=== PATIENT | male | born 1995 | race Caucasian/White ===

== ENCOUNTER 2019-05-05 07:05 | Emergency (ER) | payer OTHER, MEDICAID ==
[2019-05-05] MEDS: ONDANSETRON 4 MG INJ IV (07:33)
[2019-05-05] MEDS: ACETAMINOPHEN 325 MG TAB PO (07:33)
[2019-05-05] MEDS: SODIUM CHLORIDE 0.9% 1L BAG IV* (07:33)
== END 2019-05-05 09:39 | disposition home or self-care (01) ==
LOC: E/R 07:05
DX: N30.90 Cystitis, unspecified without hematuria (principal); R11.2 Nausea with vomiting, unspecified; F17.210 Nicotine dependence, cigarettes, uncomplicated
CPT/HCPCS: 36415; 71045; 80053; 81001; 83605; 84484; 85025; 85610; 85730; 87040-91; 87086; 93005; 96374; 99285-25